=== PATIENT | female | born 1940 | race Hispanic/Latino ===

== ENCOUNTER 2018-04-21 11:29 | Day surgery (SDC) | payer MEDICARE ==
[~2018-04-21 11:29] MED LIST: GONAK ONE; IOPIDINE ONE; ISOPTO CARPINE ONE; TETRACAINE 0.5% ONE
[2018-04-21] MEDS ORDERED: IOPIDINE OS ONE ×2 (12:12→13:16)
[2018-04-21] MEDS ORDERED: ISOPTO CARPINE OS ONE ×3 (12:12→12:22)
[2018-04-21 12:17] VITALS: BP 120/80
[2018-04-21] MEDS ORDERED: TETRACAINE 0.5% OS ONE ×2 (12:24→13:00)
== END 2018-04-21 13:20 | disposition home or self-care (01) ==
LOC: OR 11:29
PROVIDERS: ATTEND Specialist
DX: H40.212 Acute angle-closure glaucoma, left eye (principal); I10 Essential (primary) hypertension; E78.00 Pure hypercholesterolemia, unspecified; M19.90 Unspecified osteoarthritis, unspecified site; I25.10 Atherosclerotic heart disease of native coronary artery without angina pectoris; F17.210 Nicotine dependence, cigarettes, uncomplicated; Z79.899 Other long term (current) drug therapy; Z72.89 Other problems related to lifestyle; Z98.42 Cataract extraction status, left eye; Z98.41 Cataract extraction status, right eye; Z98.890 Other specified postprocedural states

== ENCOUNTER 2019-02-24 12:06 | Day surgery (SDC) | payer MEDICARE ==
[~2019-02-24 12:06] MED LIST changes: +APRACLONIDINE 1% OPHTH SOLN DROPERETTE ONE; -GONAK ONE; -IOPIDINE ONE; -ISOPTO CARPINE ONE; +PHENYLEPHRINE 10% OPHTH SOLN 5 ML ONE; -TETRACAINE 0.5% ONE; +TROPICAMIDE 1% OPHTH SOLN 3 ML ONE
[2019-02-24] MEDS ORDERED: APRACLONIDINE 1% OPHTH SOLN DROPERETTE OS ONE ×2 (12:34→12:51)
[2019-02-24] MEDS ORDERED: TROPICAMIDE 1% OPHTH SOLN 3 ML OS ONE (12:34)
[2019-02-24] MEDS ORDERED: PHENYLEPHRINE 10% OPHTH SOLN 5 ML OS ONE (12:34)
[2019-02-24 14:48] VITALS: BP 114/61
== END 2019-02-24 12:55 | disposition home or self-care (01) ==
LOC: OR 12:06
PROVIDERS: ATTEND Specialist
DX: H26.492 Other secondary cataract, left eye (principal); I25.10 Atherosclerotic heart disease of native coronary artery without angina pectoris; E78.00 Pure hypercholesterolemia, unspecified; F17.210 Nicotine dependence, cigarettes, uncomplicated; I10 Essential (primary) hypertension; M19.90 Unspecified osteoarthritis, unspecified site; Z72.89 Other problems related to lifestyle; Z98.890 Other specified postprocedural states; Z79.82 Long term (current) use of aspirin; Z79.899 Other long term (current) drug therapy; Z98.41 Cataract extraction status, right eye; Z98.42 Cataract extraction status, left eye